=== PATIENT | female | born 2000 | race Caucasian/White ===

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

== ENCOUNTER 2018-02-20 20:12 | Inpatient (IN) | payer MEDICAID ==
[~2018-02-20] VITALS: Ht 154.9 cm; Wt 59.0 kg
[2018-02-20 20:42] VITALS: BP_SYST 132
[2018-02-20] MEDS ORDERED: NACL 0.9% 1,000 ML IV ONE (21:26)
[2018-02-20] MEDS ORDERED: MORPHINE 4 MG/ML INJ. SYRINGE IVP ONE (21:30)
[2018-02-20] MEDS ORDERED: PANTOPRAZOLE SODIUM 40 MG/VIAL (PROTONIX) IVP ONE (21:30)
[2018-02-20 21:44] LABS: BILIRUBIN,URINE NEGATIVE (NEGATIVE); BLOOD, URINE NEGATIVE (NEGATIVE); CLARITY/URINE SL HAZY (CLEAR); COLOR,URINE YELLOW (YELLOW); GLUCOSE,URINE NEGATIVE (NEGATIVE); KETONES,URINE NEGATIVE (NEGATIVE); LEUKOCYTE ESTERASE ,URINE TRACE (NEGATIVE); NITRITE, URINE NEGATIVE (NEGATIVE); PROTEIN URINE TRACE (NEGATIVE); UROBILINOGEN,URINE 0.2 (0.2-1.0)
[2018-02-20 21:45] LABS: BASOPHILS # (AUTO) 0.1 K/uL (0.0-0.2); BASOPHILS % (AUTO) 0.7 % (0.0-2.0); EOSINOPHILS # (AUTO) 0.2 K/uL (0.0-0.4); EOSINOPHILS % (AUTO) 1.7 % (0.0-4.0); HEMATOCRIT 42.1 % (36-48); HEMOGLOBIN 14.3 g/dL (12.0-16.0); LYMPHOCYTES # (AUTO) 2.7 K/uL (1.0-5.5); LYMPHOCYTES % (AUTO) 24.5 % (20.5-51.5); MEAN CORPUSCULAR HEMOGLOBIN 30 pg (27-31); MEAN CORPUSCULAR HGB CONC 34 % (32-36); MEAN CORPUSCULAR VOLUME 88 fL (79.0-98.0); MONOCYTES # (AUTO) 0.5 K/uL (0.0-1.0); MONOCYTES % (AUTO) 4.5 % (1.7-9.3); NEUTROPHILS # (AUTO) 7.5 K/uL (1.8-7.7); NEUTROPHILS % (AUTO) 68.6 % (40.0-70.0); PLATELET COUNT (AUTO) 316 K/uL (130-430); RED BLOOD CELL COUNT(AUTO) 4.79 MIL/uL (4.2-6.2); RED CELL DISTRIBUTION WIDTH 12.8 % (9.0-15.0)
[2018-02-20 22:03] LABS: CALCIUM 9.5 mg/dL (8.4-11.0); CREATININE 0.8 mg/dL (0.55-1.30); POTASSIUM 3.7 mmol/L (3.5-5.1)
[2018-02-20 22:03] LABS: BACTERIA,URINE FEW /HPF (None Seen); MUCUS,URINE 4+ /LPF (None Seen); OTHER CASTS, URINE WBC CASTS 1+ /LPF (None Seen); RBC,URINE 0-3 /HPF (0-3)
[2018-02-20 22:04] LABS: URINE AMORPHOUS URATE 1+ /HPF (None Seen)
[2018-02-20 22:07] LABS: ALBUMIN 4.7 g/dL (3.4-4.8); TOTAL BILIRUBIN 0.9 mg/dL (0.0-1.0)
[2018-02-20] MEDS ORDERED: ALPR0.5T96 PO (22:34)
[2018-02-20] MEDS ORDERED: LORA-259 PO (22:34)
[2018-02-20] MEDS ORDERED: ALPRAZolam 0.25 MG TABLET PO ONE (22:45)
[2018-02-21] MEDS ORDERED: cefTRIAXone 1 GM IVPB PREMIX 50 ML IV ONE (00:45)
[2018-02-21 01:25] VITALS: BP_SYST 104
[2018-02-21] MEDS: MORPHINE 2 MG/ML INJ. SYRINGE IVP PRN ×3 (02:09→18:47)
[2018-02-21] MEDS: D5NS 1,000 ML IV SCH ×3 (02:10→18:47)
[2018-02-21] MEDS: MORPHINE 4 MG/ML INJ. SYRINGE IVP PRN ×4 (04:21→22:08)
[2018-02-21] MEDS: LORazepam 2 MG/ML VIAL IVP PRN ×2 (05:16→16:02)
[2018-02-21 08:10] VITALS: BP_SYST 105
[2018-02-21 10:03] LABS: BASOPHILS # (AUTO) 0.1 K/uL (0.0-0.2); LYMPHOCYTES # (AUTO) 2.9 K/uL (1.0-5.5)
[2018-02-21 10:06] LABS: BASOPHILS % (AUTO) 1.1 % (0.0-2.0); CALCIUM 7.9 mg/dL (8.4-11.0); CREATININE 0.62 mg/dL (0.55-1.30); EOSINOPHILS # (AUTO) 0.3 K/uL (0.0-0.4); EOSINOPHILS % (AUTO) 3.6 % (0.0-4.0); HEMATOCRIT 32.8 % (36-48); LYMPHOCYTES % (AUTO) 41.9 % (20.5-51.5); MEAN CORPUSCULAR HEMOGLOBIN 30 pg (27-31); MEAN CORPUSCULAR HGB CONC 34 % (32-36); MEAN CORPUSCULAR VOLUME 89 fL (79.0-98.0); MONOCYTES # (AUTO) 0.5 K/uL (0.0-1.0); MONOCYTES % (AUTO) 7.3 % (1.7-9.3); NEUTROPHILS # (AUTO) 3.2 K/uL (1.8-7.7); NEUTROPHILS % (AUTO) 46.1 % (40.0-70.0); PLATELET COUNT (AUTO) 242 K/uL (130-430); POTASSIUM 3.5 mmol/L (3.5-5.1); RED BLOOD CELL COUNT(AUTO) 3.68 MIL/uL (4.2-6.2); RED CELL DISTRIBUTION WIDTH 12.7 % (9.0-15.0)
[2018-02-21 10:17] LABS: ALBUMIN 3.1 g/dL (3.4-4.8); TOTAL BILIRUBIN 0.6 mg/dL (0.0-1.0)
[2018-02-21 12:48] VITALS: BP_SYST 124
[2018-02-21] MEDS: ONDANSETRON HCL 4 MG/2 ML VIAL IVP PRN ×2 (13:26→22:23)
[2018-02-21 15:23] LABS: TRIGLYCERIDES 144 mg/dL (30-150)
[2018-02-21 15:24] LABS: ALCOHOL, BLOOD < 3 mg/dL (<10)
[2018-02-21 16:56] VITALS: BP_SYST 132
[2018-02-21 19:00] VITALS: BP_SYST 141
[2018-02-21 20:00] VITALS: BP_SYST 122
[2018-02-22] MEDS: LORazepam 2 MG/ML VIAL IVP PRN ×2 (00:35→19:58)
[2018-02-22 01:27] VITALS: BP_SYST 141
[2018-02-22] MEDS: D5NS 1,000 ML IV SCH ×4 (01:48→22:47)
[2018-02-22] MEDS: MORPHINE 4 MG/ML INJ. SYRINGE IVP PRN ×5 (03:23→19:59)
[2018-02-22] MEDS: ONDANSETRON HCL 4 MG/2 ML VIAL IVP PRN ×3 (07:37→19:59)
[2018-02-22 08:36] VITALS: BP_SYST 111
[2018-02-22 12:45] VITALS: BP_SYST 116
[2018-02-22 16:40] VITALS: BP_SYST 123
[2018-02-22 20:00] VITALS: BP_SYST 144
[2018-02-23] MEDS: LORazepam 2 MG/ML VIAL IVP PRN ×4 (00:06→19:59)
[2018-02-23] MEDS: MORPHINE 4 MG/ML INJ. SYRINGE IVP PRN ×5 (00:07→19:59)
[2018-02-23 00:39] VITALS: BP_SYST 119
[2018-02-23] MEDS: D5NS 1,000 ML IV SCH ×3 (05:19→21:57)
[2018-02-23 08:35] VITALS: BP_SYST 111
[2018-02-23 13:28] VITALS: BP_SYST 108
[2018-02-23] MEDS: ONDANSETRON HCL 4 MG/2 ML VIAL IVP PRN ×2 (15:32→21:57)
[2018-02-23 16:19] VITALS: BP_SYST 130
[2018-02-23 20:00] VITALS: BP_SYST 137
[2018-02-23] MEDS: TEMAZEPAM 15 MG CAPSULE PO PRN (21:56)
[2018-02-24 00:35] VITALS: BP_SYST 109
[2018-02-24] MEDS: MORPHINE 4 MG/ML INJ. SYRINGE IVP PRN ×5 (01:43→22:43)
[2018-02-24] MEDS: LORazepam 2 MG/ML VIAL IVP PRN ×2 (02:17→08:48)
[2018-02-24] MEDS: D5NS 1,000 ML IV SCH ×4 (06:39→22:43)
[2018-02-24 08:45] VITALS: BP_SYST 123
[2018-02-24 12:00] VITALS: BP_SYST 136
[2018-02-24 16:00] VITALS: BP_SYST 132
[2018-02-24] MEDS: LIPASE/PROTEASE/AMYLASE 1 CAP PO SCH (17:21)
[2018-02-24] MEDS: ALPRAZolam 0.25 MG TABLET PO PRN (17:21)
[2018-02-24] MEDS: MORPHINE 2 MG/ML INJ. SYRINGE IVP PRN (18:19)
[2018-02-24 19:56] VITALS: BP_SYST 102
[2018-02-24] MEDS ORDERED: MORPHINE SULFATE 10 MG/ML VIAL IM PRN (23:30)
[2018-02-24] MEDS ORDERED: ACETAMINOPHEN 325 MG TABLET PO PRN (23:30)
[2018-02-25 00:14] VITALS: BP_SYST 116
[2018-02-25] MEDS: ONDANSETRON HCL 4 MG/2 ML VIAL IVP PRN ×2 (02:54→17:09)
[2018-02-25] MEDS: TEMAZEPAM 15 MG CAPSULE PO PRN ×3 (02:57→23:30)
[2018-02-25] MEDS: D5NS 1,000 ML IV SCH ×3 (05:15→21:40)
[2018-02-25 06:28] LABS: EOSINOPHILS # (AUTO) 0.4 K/uL (0.0-0.4); HEMOGLOBIN 12.3 g/dL (12.0-16.0); MONOCYTES # (AUTO) 0.6 K/uL (0.0-1.0); NEUTROPHILS # (AUTO) 3.7 K/uL (1.8-7.7); RED CELL DISTRIBUTION WIDTH 12.4 % (9.0-15.0)
[2018-02-25 06:39] LABS: BASOPHILS # (AUTO) 0.2 K/uL (0.0-0.2); BASOPHILS % (AUTO) 1.9 % (0.0-2.0); HEMATOCRIT 34.7 % (36-48); LYMPHOCYTES # (AUTO) 3.1 K/uL (1.0-5.5); MEAN CORPUSCULAR HEMOGLOBIN 31 pg (27-31); MEAN CORPUSCULAR HGB CONC 35 % (32-36); MEAN CORPUSCULAR VOLUME 88 fL (79.0-98.0); MONOCYTES % (AUTO) 7.5 % (1.7-9.3); NEUTROPHILS % (AUTO) 47.6 % (40.0-70.0); PLATELET COUNT (AUTO) 299 K/uL (130-430); RED BLOOD CELL COUNT(AUTO) 3.93 MIL/uL (4.2-6.2)
[2018-02-25 06:57] LABS: ALBUMIN 3.4 g/dL (3.4-4.8); CALCIUM 8.7 mg/dL (8.4-11.0); CREATININE 0.73 mg/dL (0.55-1.30); TOTAL BILIRUBIN 1.3 mg/dL (0.0-1.0)
[2018-02-25 07:39] LABS: ERYTHROCYTE SEDIMENTATION RATE 8 MM/HR (0-20)
[2018-02-25 08:01] VITALS: BP_SYST 96
[2018-02-25] MEDS: LIPASE/PROTEASE/AMYLASE 1 CAP PO SCH ×3 (09:01→17:10)
[2018-02-25] MEDS: POTASSIUM CHLORIDE 20 MEQ/PKT PACKET PO SCH ×2 (11:55→16:45)
[2018-02-25] MEDS: ALPRAZolam 0.25 MG TABLET PO PRN (11:56)
[2018-02-25 12:35] VITALS: BP_SYST 101
[2018-02-25] MEDS: MORPHINE 2 MG/ML INJ. SYRINGE IVP PRN ×3 (13:10→21:36)
[2018-02-25 19:51] VITALS: BP_SYST 125
[2018-02-26 00:02] VITALS: BP_SYST 137
[2018-02-26] MEDS: HYDROmorphone 2 MG/ML VIAL IVP PRN ×2 (01:43→06:44)
[2018-02-26] MEDS: ALPRAZolam 0.25 MG TABLET PO PRN (03:05)
[2018-02-26] MEDS: LIPASE/PROTEASE/AMYLASE 1 CAP PO SCH ×2 (07:56→12:00)
[2018-02-26 08:04] VITALS: BP_SYST 121
[2018-02-26] MEDS ORDERED: HYDROcodone/ACETAMIN 5-325 MG TAB (NORCO/ VICODIN) PO PRN ×2 (11:15→11:30)
[2018-02-26 12:38] VITALS: BP_SYST 119
[2018-02-26] MEDS ORDERED: MORPHINE 2 MG/ML INJ. SYRINGE IVP PRN (13:15)
[2018-02-26] MEDS ORDERED: MORPHINE 2 MG/ML INJ. SYRINGE ONE (13:31)
[2018-02-26] MEDS ORDERED: LORazepam 2 MG/ML VIAL IVP ONE (14:00)
[2018-02-26 16:18] VITALS: BP_SYST 114
== END 2018-02-26 17:20 | disposition left against medical advice (07) | DRG 282 ==
LOC: SED 20:12 → SMU 02-21 01:10
PROVIDERS: ADMIT Internal Medicine Hospice and Palliative Medicine; ATTEND Internal Medicine Hospice and Palliative Medicine
DX: K85.30 Drug induced acute pancreatitis without necrosis or infection (principal); F11.20 Opioid dependence, uncomplicated; I10 Essential (primary) hypertension; N39.0 Urinary tract infection, site not specified; K86.1 Other chronic pancreatitis; F12.90 Cannabis use, unspecified, uncomplicated; T40.7X5A Adverse effect of cannabis (derivatives), initial encounter; Z53.21 Procedure and treatment not carried out due to patient leaving prior to being seen by health care provider; F43.10 Post-traumatic stress disorder, unspecified; Z88.6 Allergy status to analgesic agent; Z88.8 Allergy status to other drugs, medicaments and biological substances; Y92.89 Other specified places as the place of occurrence of the external cause
CPT/HCPCS: 36415; 76700-TC; 80053; 81000-TC; 83690-TC; 84478-TC; 84703; 85025; 85651-TC; 87040-TC; 87086; 96361; 96365; 96375; 99285; C9113; G0482; J0696; J1170; J2060; J2270; J2405; J7030; J7042

== ENCOUNTER 2018-05-27 23:57 | Inpatient (IN) | payer MEDICAID ==
[~2018-05-27] VITALS: Ht 152.4 cm; Wt 56.7 kg
[~2018-05-27 23:57] MED LIST changes: +ALPR0.5T PO; +LORA-259 PO; -TRAZ-123 PO; -medical marijuana
[2018-05-28] VITALS (7 sets, daily range): BP systolic 107–138
[2018-05-28] MEDS ORDERED: MORPHINE 2 MG/ML INJ. SYRINGE IVP ONE ×4 (00:30→07:30)
[2018-05-28] MEDS ORDERED: ONDANSETRON HCL 4 MG/2 ML VIAL IVP ONE ×3 (00:30→07:30)
[2018-05-28 00:36] LABS: BILIRUBIN,URINE NEGATIVE (NEGATIVE); BLOOD, URINE NEGATIVE (NEGATIVE); CLARITY/URINE CLEAR (CLEAR); COLOR,URINE YELLOW (YELLOW); GLUCOSE,URINE NEGATIVE (NEGATIVE); KETONES,URINE NEGATIVE (NEGATIVE); LEUKOCYTE ESTERASE ,URINE NEGATIVE (NEGATIVE); NITRITE, URINE NEGATIVE (NEGATIVE); PH,URINE 5.5 (5.0-8.0); PROTEIN URINE 1+ (NEGATIVE); UROBILINOGEN,URINE 0.2 (0.2-1.0)
[2018-05-28 00:45] LABS: BARBITURATE, URINE NEGATIVE (NEG <=200); BENZODIAZEPINE, URINE NEGATIVE (NEG <=150); CANNABINOID, URINE POSITIVE (NEG <=50); COCAINE, URINE NEGATIVE (NEG <=150); METHAMPHETAMINES SCREEN,URINE POSITIVE (NEG <=500); OPIATE, URINE NEGATIVE (NEG <=100); PHENCYCLIDINE SCREEN,URINE NEGATIVE (NEG <=25); UR TRICYCLIC ANTIDEPRESSANTS NEGATIVE (NEG <=300); URINE AMPHETAMINE NEGATIVE (NEG <=500); URINE METHADONE NEGATIVE (NEG <=200); URINE OXYCODONE SCREEN NEGATIVE (NEG <=100); URINE PROPOXYPHENE SCREEN NEGATIVE (NEG <=300)
[2018-05-28 00:51] LABS: HEMATOCRIT 40.3 % (36-48); HEMOGLOBIN 13.5 g/dL (12.0-16.0); MEAN CORPUSCULAR HEMOGLOBIN 29 pg (27-31); MEAN CORPUSCULAR HGB CONC 34 % (32-36); MEAN CORPUSCULAR VOLUME 88 fL (79.0-98.0); PLATELET COUNT (AUTO) 456 K/uL (130-430); RED CELL DISTRIBUTION WIDTH 11.8 % (9.0-15.0); WHITE BLOOD COUNT (AUTO) 14.6 K/uL (4.5-11.0)
[2018-05-28 00:54] LABS: CALCIUM 8.5 mg/dL (8.4-11.0); CREATININE 0.67 mg/dL (0.55-1.30); POTASSIUM 3.7 mmol/L (3.5-5.1)
[2018-05-28 01:05] LABS: ALBUMIN 3.6 g/dL (3.4-4.8); TOTAL BILIRUBIN 0.9 mg/dL (0.0-1.0)
[2018-05-28 01:07] LABS: BACTERIA,URINE FEW /HPF (None Seen); WBC,URINE 0-3 /HPF (0-3)
[2018-05-28 01:20] LABS: ATYPICAL LYMPHOCYTES % 4 % (0-0); BASOPHILS % (MANUAL) 0 % (0-2); EOSINOPHILS % (MANUAL) 5 % (0-7); LYMPHOCYTES % (MANUAL) 31 % (20-46); MONOCYTES % (MANUAL) 3 % (0-11)
[2018-05-28] MEDS ORDERED: ACETAMINOPHEN 325 MG TABLET PO PRN (09:30)
[2018-05-28] MEDS ORDERED: MUPIROCIN 2% TOPICAL OINTMENT 22 GM NS PRN (09:30)
[2018-05-28] MEDS ORDERED: MORPHINE 2 MG/ML INJ. SYRINGE IVP PRN (09:30)
[2018-05-28] MEDS ORDERED: MAGNESIUM SULFATE 50 ML IV PRN (09:30)
[2018-05-28] MEDS ORDERED: DOCUSATE SODIUM 100 MG CAPSULE PO PRN (09:30)
[2018-05-28] MEDS ORDERED: POTASSIUM CHLORIDE 20 MEQ TAB.PRT.SR PO PRN (09:30)
[2018-05-28] MEDS: MORPHINE 2 MG/ML INJ. SYRINGE IVP PRN ×3 (10:30→20:18)
[2018-05-28] MEDS: D5NS 1,000 ML IV SCH ×2 (10:36→22:16)
[2018-05-28] MEDS: LORazepam 2 MG/ML VIAL IVP PRN ×2 (18:00→22:25)
[2018-05-28] MEDS: ONDANSETRON HCL 4 MG/2 ML VIAL IVP PRN (20:19)
[2018-05-29] MEDS: MORPHINE 2 MG/ML INJ. SYRINGE IVP PRN ×6 (00:44→22:35)
[2018-05-29 02:55] VITALS: BP_SYST 123
[2018-05-29] MEDS: LORazepam 2 MG/ML VIAL IVP PRN ×5 (03:58→22:35)
[2018-05-29 05:11] VITALS: BP_SYST 119
[2018-05-29 07:06] LABS: BASOPHILS # (AUTO) 0.1 K/uL (0.0-0.2); BASOPHILS % (AUTO) 0.7 % (0.0-2.0); EOSINOPHILS # (AUTO) 0.5 K/uL (0.0-0.4); EOSINOPHILS % (AUTO) 6.1 % (0.0-4.0); HEMATOCRIT 36.2 % (36-48); HEMOGLOBIN 12.3 g/dL (12.0-16.0); LYMPHOCYTES # (AUTO) 3.5 K/uL (1.0-5.5); LYMPHOCYTES % (AUTO) 44.2 % (20.5-51.5); MEAN CORPUSCULAR HEMOGLOBIN 30 pg (27-31); MEAN CORPUSCULAR HGB CONC 34 % (32-36); MEAN CORPUSCULAR VOLUME 88 fL (79.0-98.0); MONOCYTES # (AUTO) 0.6 K/uL (0.0-1.0); MONOCYTES % (AUTO) 7.6 % (1.7-9.3); NEUTROPHILS # (AUTO) 3.4 K/uL (1.8-7.7); NEUTROPHILS % (AUTO) 41.4 % (40.0-70.0); PLATELET COUNT (AUTO) 354 K/uL (130-430); RED BLOOD CELL COUNT(AUTO) 4.11 MIL/uL (4.2-6.2); RED CELL DISTRIBUTION WIDTH 11.9 % (9.0-15.0); WHITE BLOOD COUNT (AUTO) 8.1 K/uL (4.5-11.0)
[2018-05-29 07:18] LABS: BILIRUBIN,DIRECT 0.2 mg/dL (0.0-0.3); CALCIUM 8.3 mg/dL (8.4-11.0); CREATININE 0.62 mg/dL (0.55-1.30); POTASSIUM 3.5 mmol/L (3.5-5.1); TOTAL BILIRUBIN 0.8 mg/dL (0.0-1.0)
[2018-05-29] MEDS: D5NS 1,000 ML IV SCH ×2 (07:26→18:15)
[2018-05-29 08:00] VITALS: BP_SYST 147
[2018-05-29 12:43] VITALS: BP_SYST 130
[2018-05-29 15:42] VITALS: BP_SYST 124
[2018-05-29 20:20] VITALS: BP_SYST 128
[2018-05-29] MEDS: ONDANSETRON HCL 4 MG/2 ML VIAL IVP PRN (21:45)
[2018-05-30] VITALS: BP_SYST 130
[2018-05-30] MEDS: MORPHINE 2 MG/ML INJ. SYRINGE IVP PRN ×7 (01:42→20:17)
[2018-05-30] MEDS: ZOLPIDEM TARTRATE 5 MG TABLET PO PRN ×2 (02:01→21:25)
[2018-05-30] MEDS: LORazepam 2 MG/ML VIAL IVP PRN ×5 (04:44→23:07)
[2018-05-30 06:31] LABS: BASOPHILS # (AUTO) 0.1 K/uL (0.0-0.2); BASOPHILS % (AUTO) 0.7 % (0.0-2.0); EOSINOPHILS # (AUTO) 0.3 K/uL (0.0-0.4); EOSINOPHILS % (AUTO) 3.6 % (0.0-4.0); HEMATOCRIT 38.6 % (36-48); HEMOGLOBIN 12.6 g/dL (12.0-16.0); LYMPHOCYTES # (AUTO) 3.1 K/uL (1.0-5.5); LYMPHOCYTES % (AUTO) 35.6 % (20.5-51.5); MEAN CORPUSCULAR HEMOGLOBIN 29 pg (27-31); MEAN CORPUSCULAR HGB CONC 33 % (32-36); MEAN CORPUSCULAR VOLUME 88 fL (79.0-98.0); MONOCYTES # (AUTO) 0.6 K/uL (0.0-1.0); MONOCYTES % (AUTO) 7.1 % (1.7-9.3); NEUTROPHILS # (AUTO) 4.5 K/uL (1.8-7.7); PLATELET COUNT (AUTO) 360 K/uL (130-430); RED BLOOD CELL COUNT(AUTO) 4.37 MIL/uL (4.2-6.2); RED CELL DISTRIBUTION WIDTH 12.3 % (9.0-15.0); WHITE BLOOD COUNT (AUTO) 8.6 K/uL (4.5-11.0)
[2018-05-30 06:35] LABS: CALCIUM 8.7 mg/dL (8.4-11.0); CREATININE 0.62 mg/dL (0.55-1.30); POTASSIUM 3.3 mmol/L (3.5-5.1)
[2018-05-30 08:00] VITALS: BP_SYST 121
[2018-05-30] MEDS: D5NS 1,000 ML IV SCH ×3 (11:11→21:29)
[2018-05-30 12:00] VITALS: BP_SYST 132
[2018-05-30 16:00] VITALS: BP_SYST 135
[2018-05-30] MEDS: LIPASE/PROTEASE/AMYLASE 1 CAP PO SCH ×2 (18:00→18:39)
[2018-05-30] MEDS: ONDANSETRON HCL 4 MG/2 ML VIAL IVP PRN (20:06)
[2018-05-30 20:10] VITALS: BP_SYST 136
[2018-05-30 23:30] VITALS: BP_SYST 116
[2018-05-31] MEDS: MORPHINE 2 MG/ML INJ. SYRINGE IVP PRN ×4 (00:35→09:55)
[2018-05-31] MEDS: LORazepam 2 MG/ML VIAL IVP PRN ×2 (03:01→07:11)
[2018-05-31 07:55] VITALS: BP_SYST 113
[2018-05-31 07:58] LABS: CALCIUM 8.8 mg/dL (8.4-11.0); CREATININE 0.69 mg/dL (0.55-1.30); POTASSIUM 3.6 mmol/L (3.5-5.1)
[2018-05-31 08:29] LABS: BASOPHILS % (AUTO) 0.5 % (0.0-2.0); EOSINOPHILS # (AUTO) 0.4 K/uL (0.0-0.4); EOSINOPHILS % (AUTO) 5.6 % (0.0-4.0); HEMATOCRIT 36.4 % (36-48); HEMOGLOBIN 12.5 g/dL (12.0-16.0); LYMPHOCYTES # (AUTO) 3.2 K/uL (1.0-5.5); LYMPHOCYTES % (AUTO) 39.9 % (20.5-51.5); MEAN CORPUSCULAR HEMOGLOBIN 30 pg (27-31); MEAN CORPUSCULAR HGB CONC 34 % (32-36); MEAN CORPUSCULAR VOLUME 86 fL (79.0-98.0); MONOCYTES # (AUTO) 0.6 K/uL (0.0-1.0); MONOCYTES % (AUTO) 7.3 % (1.7-9.3); NEUTROPHILS # (AUTO) 3.8 K/uL (1.8-7.7); NEUTROPHILS % (AUTO) 46.7 % (40.0-70.0); PLATELET COUNT (AUTO) 334 K/uL (130-430); RED BLOOD CELL COUNT(AUTO) 4.22 MIL/uL (4.2-6.2); RED CELL DISTRIBUTION WIDTH 12.2 % (9.0-15.0)
[2018-05-31] MEDS: D5NS 1,000 ML IV SCH (08:40)
[2018-05-31] MEDS: LIPASE/PROTEASE/AMYLASE 1 CAP PO SCH ×2 (08:42→12:00)
[2018-05-31 12:00] VITALS: BP_SYST 124
[2018-05-31 12:57] VITALS: BP_SYST 139
[2018-05-31 13:26] VITALS: BP_SYST 130
== END 2018-05-31 15:50 | disposition home or self-care (01) | DRG 282 ==
LOC: SED 23:57 → SMU 05-28 07:23
PROVIDERS: ADMIT Internal Medicine; ATTEND General Practice
DX: K85.90 Acute pancreatitis without necrosis or infection, unspecified (principal); R45.851 Suicidal ideations; F33.2 Major depressive disorder, recurrent severe without psychotic features; F11.20 Opioid dependence, uncomplicated; F41.0 Panic disorder [episodic paroxysmal anxiety]; G89.4 Chronic pain syndrome; K86.1 Other chronic pancreatitis; S51.819A Laceration without foreign body of unspecified forearm, initial encounter; F41.9 Anxiety disorder, unspecified; F40.00 Agoraphobia, unspecified; X58.XXXA Exposure to other specified factors, initial encounter; Y93.89 Activity, other specified; Y92.89 Other specified places as the place of occurrence of the external cause; Y99.8 Other external cause status; Z88.8 Allergy status to other drugs, medicaments and biological substances
CPT/HCPCS: 36415; 76700-TC; 80048; 80053; 80076; 80307; 81000-TC; 81025; 83036; 83690-TC; 83735-TC; 85007; 85025; 85027; 96374; 96375; 96376; 99284; 99285; J2060; J2270; J2405; J7042